=== PATIENT | male | born 1955 | race Caucasian/White ===

== ENCOUNTER 2018-01-21 05:10 | Emergency (ER) | payer OTHER ==
[~2018-01-21] VITALS: Ht 162.6 cm; Wt 71.2 kg
[~2018-01-21 05:10] MED LIST: ASPIR 8181 MG; COZAAR100 MG; LIPITOR40 MG; TOPROL XL50 M1
== END 2018-01-21 12:12 ==
LOC: ER 05:10 → CPU-OBS 05:11 → ER 12:12
DX: R07.89 Other chest pain (principal)
CPT/HCPCS: G0378; G0379; 93005

== ENCOUNTER 2021-09-17 10:31 | Outpatient (CLI) | payer OTHER | END 2021-09-17 10:37 | disposition home or self-care (01) | LOC: SONOGRAMA 10:31 | PROVIDERS: ATTEND Pathology Anatomic Pathology & Clinical Pathology | DX: N62 Hypertrophy of breast (principal) ==